=== PATIENT | female | born 1975 | race Hispanic/Latino ===

== ENCOUNTER 2019-01-20 11:27 | Inpatient (IN) | payer MEDICAID ==
[~2019-01-20] VITALS: Ht 152.4 cm; Wt 55.2 kg
[2019-01-20 12:51] LABS: HEMATOCRIT 37.4 % (36.0-47.0); HEMOGLOBIN 12.8 g/dl (12.0-15.5); MEAN CORPUSCULAR HEMOGLOBIN 30.1 pg (27.0-33.0); MEAN CORPUSCULAR HGB CONC 34.2 g/dl (32.0-36.5); PLATELET COUNT, AUTOMATED 336 10^3/uL (150-450); RED BLOOD COUNT 4.25 10^6/uL (4.00-5.40); WHITE BLOOD COUNT 9.1 10^3/uL (4.0-10.0)
[2019-01-20 13:21] LABS: AMPHETAMINES LEVEL URINE NEGATIVE (NEGATIVE); BARBITURATES URINE NEGATIVE (NEGATIVE); BENZODIAZEPINES URINE NEGATIVE (NEGATIVE); CANNABINOIDS URINE NEGATIVE (NEGATIVE); COCAINE METABOLITE URINE NEGATIVE (NEGATIVE); METHADONE URINE NEGATIVE (NEGATIVE); OPIATES URINE NEGATIVE (NEGATIVE); PHENCYCLIDINE URINE NEGATIVE (NEGATIVE)
[2019-01-20 13:23] LABS: HCG, SERUM QUALITATIVE NEGATIVE (NEGATIVE)
[2019-01-20 13:35] LABS: ALBUMIN 4.1 GM/DL (3.2-5.2); ALT/SGPT 13 U/L (12-78); BILIRUBIN,DIRECT 0.1 MG/DL (0.0-0.2); BILIRUBIN,TOTAL 0.5 MG/DL (0.2-1.0); BLOOD UREA NITROGEN 5 MG/DL (7-18); CALCIUM LEVEL 9.1 MG/DL (8.5-10.1); CARBON DIOXIDE LEVEL 27 MEQ/L (21-32); CHLORIDE LEVEL 108 MEQ/L (98-107); CREATININE FOR GFR 0.59 MG/DL (0.55-1.30); ETHYL ALCOHOL (ETHANOL) < 0.003 % (0.000-0.010); GLOMERULAR FILTRATION RATE > 60.0 (>58); GLUCOSE, FASTING 72 MG/DL (70-100); POTASSIUM SERUM 3.9 MEQ/L (3.5-5.1); SALICYLATE LEVEL < 1.7 MG/DL (5.0-30.0); SODIUM LEVEL 141 MEQ/L (136-145); TOTAL PROTEIN 7.3 GM/DL (6.4-8.2)
[2019-01-20 13:36] LABS: ACETAMINOPHEN LEVEL < 2.0 UG/ML (10.0-30.0)
[2019-01-20] MEDS ORDERED: MAALOX 30 ML SUSP *UDC PO PRN (17:00)
[2019-01-20] MEDS ORDERED: MOM 30ML SUSPENSION UDC PO PRN (17:00)
[2019-01-20] MEDS ORDERED: HALOPERIDOL 5 MG TAB PO PRN (17:00)
[2019-01-20] MEDS ORDERED: diphenhydrAMINE 25 MG CAP PO PRN (17:00)
[2019-01-20] MEDS ORDERED: LORazepam 1 MG TAB PO PRN (17:00)
[2019-01-20] MEDS ORDERED: HALOPERIDOL 10 MG TAB PO PRN (17:08)
[2019-01-20] MEDS: LORazepam 2 MG TAB PO PRN ×2 (17:41→21:59)
[2019-01-20 18:17] VITALS: BP 118/66
[2019-01-20] MEDS: diphenhydrAMINE 50 MG CAP PO PRN (21:04)
[2019-01-20] MEDS: traZODone 50 MG TAB PO PRN (21:59)
[2019-01-21 06:43] VITALS: BP 98/50
[2019-01-21] MEDS: LORazepam 2 MG TAB PO PRN ×2 (10:29→21:24)
--- NOTE | 2019-01-21 14:07 | HPEPDOC ---
General Date of Admission Jan 20, 2019 at 16:46 Date of Service: Jan 21, 2019 Chief Complaint The patient is a 43-year-old female Who presented to [facility] ER after having a family dispute. History of Present Illness Patient is a 43-year-old female with no significant past medical history who presented to the emergency room and was admitted to inpatient mental health unit under care of psychiatry. Hospitalist services consultation for medical screening evaluation. Patient has reported that she has a mild headache but denies nausea, vomiting, chest pain, chest breath, change in her baseline cough, abdominal pain, constipation, diarrhea, or urinary discomfort. She reports that she may have been expressing subjective fevers or chills over last several weeks. She denies any change in her appetite and is not aware of any changes in her weight. Home Medications Unable to Obtain Active Prescriptions or Reported Meds Allergies Coded Allergies: No Known Allergies (Unverified , 01/20/19) Past Medical History Medical History Patient reports that she does not have any medical problems Surgical History Patient reports that she has not had any prior surgeries Family History - Mother with history of diabetes type 2 - Father without any reported medical problems Social History - Denies the use of alcohol or illicit drugs; patient does report that she is a smoker for at least 5 years at half pack a day - Denies recent travel or sick contacts - Lives alone - Occupation; on disability Review of Systems Other systems 10 point review of systems complete, all negative otherwise stated in HPI Vital Signs - Vitals: BP 118/66, HR 82, RR 18, Sat 97%RA, Temp 98.9F - General: Lying in bed, No acute distress, Speaking in full sentences, AAOx3 - HEENT: NC, AT, PERRLA - CVS: RRR, +S1S2 - Lungs: Fair air entry bilaterally, No appreciable wheezing / rales / rhonchi - Abdomen: Soft, Non-distended, Non-tender - Extremities: No lower extremity edema, No calf tenderness - Neuro: No focal motor or sensory deficit - Skin: No visible rashes Plan / VTE VTE Prophylaxis Ordered?: Yes Plan Plan Psychosis - Currently being medically inpatient mental health unit, under the care of Psychiatry Headache - Will start ibuprofen PRN Nicotine dependence - Advised smoking cessation - Will start Nicotine replacement No significant medical history DVT prophylaxis - c/w early ambulation Female bead wrapper was present for the duration of his history and physical examination Please re-consult hospitalist service as needed TINA RUSHING MD Jan 21, 2019 14:07
--- NOTE | 2019-01-21 14:24 | MHHPE ---
DATE OF ADMISSION: 01/20/2019 HISTORY OF PRESENT ILLNESS: This is a 43-year-old woman who was admitted after she was brought to the emergency room by the networker from [facility] ([facility]). [facility] and she had been in snf for about 60 days. She was picked up on an old warrant from many years ago. She arrived her on a bus from [place] prior to her arrest for unknown reasons. She is telling me today that it is because she came to see some stepchildren, but she is very vague as to where these children are or who they are. She was picked up by the police and arrested because they found her wandering and talking to herself. They were going to transport her to the emergency room when they found out she had an outstanding arrest warrant. While incarcerated they noticed very manic and grandiose behavior, alternating with agitation and very odd behavior. An example provided was frequently combing her pubic hair with her toothbrush and picking all over her skin. There was also some delusional thoughts expressed including having super gerardo. She was seen by telepsychiatry last Wednesday while she still was in snf. However, her medications were not changed and she was discharged on just Seroquel 100 mg at bedtime. Again, the snf was trying to set up detention for her because she was going to be homeless on discharge from the snf. They had reached out to [facility] as well as [facility] for discharge planning and detention. [facility] was aware of her mental state and would not provide emergency housing because they did not feel she was stable enough. So upon discharge from snf yesterday, she was taken to [facility] where she was very agitated and created a disturbance in the waiting room. Also there was concern about learning that the patient had a violent past with arrests for attempted murder and assault with a deadly weapon, which had resulted in her being in a forensic unit for 10 years in [place]. When she got discharged from there, that is when she took a bus to come up here to [place]. It seems that those charges were eventually dropped due to "insanity." So, in the emergency room the patient was noted to be actively hallucinating including her insistence that the interviewer was speaking to her during periods of silence. That was actually when they were doing the mental health evaluation at [facility]. In our emergency room, she thought that she had been brought to the hospital because she thought that the doctor at the other clinic had been to busy to give her her medications and that she was here only for prescription and referral to [facility] for housing. 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 She insisted that the snf had cleared her of any mental issues and that she has never had any mental problems. She admitted that she was 10 years in a forensic unit, but she said that she was there by choice and because it was "like camp." Today when I saw the patient, basically she insists she has never had any psychiatric problems despite the fact that she was in a forensic unit for 10 years in [place] and the fact that the [facility] snf had just discharged her yesterday on Seroquel 100 mg at bedtime. She then tells me that she had posttraumatic stress disorder (PTSD) and so when I asked her what her PTSD symptoms were she says "oh, depression and not feeling like I have anything to do." Then I asked her what event resulted in her PTSD and she tells me that she had been in the and her PTSD was from being in [facility], and so I asked her how that resulted in PTSD and she says, "well it was because I was not able to do anything that I could enjoy." So basically, her answers do not make much sense and here is some pressured speed and some flight of ideas and very poor insight and judgment. PAST PSYCHIATRIC HISTORY: I do not know how reliable this is, but as I said, she said she was diagnosed with PTSD. She insists that she has never been diagnosed with any psychiatric problems. She says she has never tired to hurt herself before. FAMILY HISTORY: She denies any psychiatric illness or any suicides in the family. MEDICAL HISTORY: She denies any medical problems. SUBSTANCE ABUSE: She denies any problems with alcohol or drugs. Her toxicology screen was negative. REVIEW OF SYSTEMS: VITAL SIGNS: Blood pressure 98/58, pulse 72, respirations 14. APPEARANCE: She did not appear to be in any apparent distress. NEUROMUSCULAR SYSTEM: The patient's gait was normal. There was no involuntary movements. All other systems were reviewed and found to be negative. MENTAL STATUS EXAMINATION: The patient alert and oriented times three. Her eye contact is fairly good. She is noted to be picking on her skin and she does have a lot of spots all over her face and some on her arms. She is overall cooperative. She is verbally spontaneous, actually her speech is somewhat pressured and she does appear to have some flight of ideas. Mood is okay. Affect is flat. She appears to be delusional as noted above. She denied any auditory hallucinations. She denied being suicidal or homicidal. Concentration is fair. Memory appears to be grossly intact. Insight and judgment is poor. DIAGNOSIS: Schizophrenia versus schizoaffective disorder, bipolar type. TREATMENT PLAN: At this point, we will continue to evaluate and monitor this patient for ongoing psychotic symptoms and what appears to be some manic like symptoms with poor insight and judgment and I am concerned about her history of aggression and so we will observe her on one-to-one observation level. We will continue the Seroquel 100 mg at bedtime. She was offered and she did take, Ativan 2 mg and the Benadryl 50 mg last night, but she refused the Haldol as needed that I had written for her. So, I will make sure that I order the Seroquel for her since it sounds like she is willing to take this. We will continue to titrate her medications as indicated and once she is stable she will be discharged with appropriate followup.
[2019-01-21 16:10] VITALS: BP 89/53
[2019-01-21] MEDS: diphenhydrAMINE 50 MG CAP PO PRN (17:49)
[2019-01-21] MEDS: QUEtiapine FUMARATE 100 MG TAB PO SCH (21:24)
[2019-01-21] MEDS: ACETAMINOPHEN TAB 650MG DOSE (2X325MG) PO PRN (21:24)
[2019-01-22 06:25] VITALS: BP 115/55
[2019-01-22] MEDS: diphenhydrAMINE 50 MG CAP PO PRN ×3 (11:15→20:28)
[2019-01-22] MEDS: NICOTINE POLACRILEX 2 MG GUM PO PRN ×2 (11:15→17:10)
[2019-01-22] MEDS: LORazepam 2 MG TAB PO PRN (13:17)
[2019-01-22] MEDS: CLINDAMYCIN TOP 1% SOLN 60 ML BTL TOP SCH ×2 (14:39→20:28)
[2019-01-22 16:22] VITALS: BP 91/55
--- NOTE | 2019-01-22 16:36 | MHIPN ---
DATE: 01/22/2019 The patient today was pretty much talking nonstop. Her speech was very pressured. She kept talking about her stepdaughter that she says is "out of control." She says that she came to see that stepdaughter, the stepdaughter had been taking her money, but she had heard that the stepdaughter was going to work as a stripper and she was trying to set her straight and basically this is all that she was focusing on today. Other than that, she had no complaints. She continues to have no insight as to why she was reportedly in a forensic snf for 10 years in [place] and she kept saying that she was put in detention here in [facility] for crimes that somebody else had committed and not her. MENTAL STATUS EXAMINATION: She is alert and oriented times three. Eye contact is fairly good. Speech is quite pressured and she has flight of ideas. Mood is definitely hypomanic. Affect is labile. I am not sure if she is actually having delusions at this point. She keeps insisting that she has a stepdaughter. There may be some way to try to find out who the stepdaughter might be, but the patient does not even having a phone number and the way she describes it, it was that she had arrived a couple of months ago from [place] with her suitcase and walking around the square trying to figure out where the stepdaughter was living, so I do not know how reliable she is. She says that this is when the police found her and arrested her again. DIAGNOSIS: 1. Schizophrenia versus schizoaffective disorder, bipolar type. TREATMENT PLAN: This as noted above. In the meantime, I have continued the Seroquel 100 mg at night and she has started to take that and it seems that she has accepted as needed medication of Ativan and Benadryl, even this morning, and she has taken the trazodone. At this point, I will continue the one-to-one observation level, as I am concerned about the history that was given that this patient had a history of being aggressive and was 10 years in a forensic hospital.
[2019-01-22] MEDS: ACETAMINOPHEN TAB 650MG DOSE (2X325MG) PO PRN (17:10)
[2019-01-22] MEDS: traZODone 50 MG TAB PO PRN (20:28)
[2019-01-22] MEDS: QUEtiapine FUMARATE 100 MG TAB PO SCH (20:28)
[2019-01-23 06:56] VITALS: BP 116/62
[2019-01-23] MEDS: CLINDAMYCIN TOP 1% SOLN 60 ML BTL TOP SCH ×2 (09:38→20:22)
[2019-01-23] MEDS: NICOTINE POLACRILEX 2 MG GUM PO PRN ×2 (09:39→15:21)
[2019-01-23] MEDS: diphenhydrAMINE 50 MG CAP PO PRN ×2 (09:39→17:57)
[2019-01-23] MEDS: IBUPROFEN 400 MG TAB PO PRN ×2 (09:39→20:20)
--- NOTE | 2019-01-23 11:02 | MHIPNPDOC ---
[facility] Progress Note Progress Note DATE OF SERVICE: 01/23/19 HISTORY: Per Dr. Oneal admit note: "This is a 43-year-old woman who was admitted after she was brought to the emergency room by the hot tamale worker from [facility] ([facility]). [facility] and she had been in nursing home for about 60 days. She was picked up on an old warrant from many years ago. She arrived her on a bus from [place] prior to her arrest for unknown reasons. She is telling me today that it is because she came to see some stepchildren, but she is very vague as to where these children are or who they are. She was picked up by the police and arrested because they found her wandering and talking to herself. They were going to transport her to the emergency room when they found out she had an outstanding arrest warrant. While incarcerated they noticed very manic and grandiose behavior, alternating with agitation and very odd behavior. An example provided was frequently combing her pubic hair with her toothbrush and picking all over her skin. There was also some delusional thoughts expressed including having super gerardo. She was seen by telepsychiatry last Wednesday while she still was in nursing home. However, her medications were not changed and she was discharged on just Seroquel 100 mg at bedtime. Again, the nursing home was trying to set up long-term for her because she was going to be homeless on discharge from the nursing home. They had reached out to [facility] as well as [facility] for discharge planning and long-term. [facility] was aware of her mental state and would not provide emergency housing because they did not feel she was stable enough. So upon discharge from nursing home yesterday, she was taken to [facility] where she was very agitated and created a disturbance in the waiting room. Also there was concern about learning that the patient had a violent past with arrests for attempted murder and assault with a deadly weapon, which had resulted in her being in a forensic unit for 10 years in [place]. When she got discharged from there, that is when she took a bus to come up here to [place]. It seems that those charges were eventually dropped due to "insanity." So, in the emergency room the patient was noted to be actively hallucinating including her insistence that the interviewer was speaking to her during periods of silence. That was actually when they were doing the mental health evaluation at [facility]. In our emergency room, she thought that she had been brought to the hospital because she thought that the doctor at the other clinic had been to busy to give her her medications and that she was here only for prescription and referral to [facility] for housing. 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 She insisted that the nursing home had cleared her of any mental issues and that she has never had any mental problems. She admitted that she was 10 years in a forensic unit, but she said that she was there by choice and because it was "like camp." Today when I saw the patient, basically she insists she has never had any psychiatric problems despite the fact that she was in a forensic unit for 10 years in [place] and the fact that the [facility] nursing home had just discharged her yesterday on Seroquel 100 mg at bedtime. She then tells me that she had posttraumatic stress disorder (PTSD) and so when I asked her what her PTSD symptoms were she says "oh, depression and not feeling like I have anything to do." Then I asked her what event resulted in her PTSD and she tells me that she had been in the and her PTSD was from being in [facility], and so I asked her how that resulted in PTSD and she says, "well it was because I was not able to do anything that I could enjoy." So basically, her answers do not make much sense and here is some pressured speed and some flight of ideas and very poor insight and judgment." VITAL SIGNS: See below. NEW TEST RESULTS: See below. CURRENT MEDICATIONS: See below. MENTAL STATUS EXAMINATION: Pt is pleasant and cooperative. She is alert and oriented times three. Eye contact is fairly good. Pt has normal rate, rhythm, and volume of speech. Speech content is concrete, but linear. Insight is poor and judgement is fair. Pt appears to have below-average knowledge. Mood appears euthymic. Due to mental history, pt does not appear to be reliable. Due to poor insight, this is likely unintentional. Denies SI/HI, AH/VH. DIAGNOSES: 1. Schizophrenia versus schizoaffective disorder, bipolar type. ASSESSMENT: She states that her daughter will pick her up when she is ready to go home. She had no complaints at this time. She states that she does not know why she had a warrant for her arrest because she denies being in the area in 2006. Pt stated that she did not brush her pubic hair at the nursing home, and that she was instead "brushing the crusties off [her] feet" with the toothbrush. She states that she was being bothered by others there and was defending herself. Sh e states that she has had a "steady mental health history," and that she has had bad periods of mental health. She seems to have no insight into her psychosis. Pt states that she has PTSD due to her time in [facility]. She states that she has occasional bad dreams but does not remember the content, but that they are gone now that she has her Seroquel. Pt states that the Seroquel has been effective and does not feel the need to change the dose. She feels it is safe to d/c 1:1 sitter. Denies SI/HI, AH/SH. Pt feels safe here. MANAGEMENT PLAN: d/c 1:1 sitter. seroquel 100mg qhs trazodone 50mg qhs prn insomnia haldol 10mg q6hr prn anxiety/agitation benadryl 50mg q6hr prn anxiety/agitation TIME SPENT: 30 minutes. Vital Signs Vital Signs Date Time Temp Pulse Resp B/P (MAP) Pulse Ox O2 Delivery O2 Flow Rate FiO2 01/23/19 06:56 98.1 84 16 116/62 (80) 01/21/19 07:55 Room Air 01/20/19 18:17 97 Current Medications Current Medications Medications (Trade) Dose Ordered Sig/Jeni Route PRN Reason Start Time Stop Time Status Last Admin Dose Admin Acetaminophen (Tylenol Tab) 650 mg Q6HP PRN PO HEADACHE or DISCOMFORT 01/20/19 17:00 01/22/19 17:10 Al Hydrox/Mg Hydrox/Simethicone (Mylanta) 30 ml Q4HP PRN PO HEARTBURN/INDIGESTION 01/20/19 17:00 Clindamycin Phosphate (Cleocin 1% Top) apply topically to face BID TOP 01/22/19 09:00 01/25/19 08:59 01/23/19 09:38 Diphenhydramine HCl (Benadryl) 50 mg Q4HP PRN PO SEVERE AGITATION 01/21/19 13:00 01/22/19 17:10 Diphenhydramine HCl (Benadryl) 50 mg Q6HP PRN PO ANXIETY/AGITATION 01/20/19 17:00 01/20/19 17:08 DC Diphenhydramine HCl (Benadryl) 50 mg Q6HP PRN PO ANXIETY/AGITATION 01/20/19 17:08 01/23/19 09:39 Haloperidol (Haldol) 10 mg Q4HP PRN PO ANXIETY/AGITATION 01/20/19 17:00 01/20/19 17:08 DC Haloperidol (Haldol) 10 mg Q4HP PRN PO ANXIETY/AGITATION 01/20/19 17:08 Home Med (Med Rec Complete!) ASDIRECTED XX 01/20/19 12:45 01/20/19 12:40 DC Ibuprofen (Advil) 400 mg Q8HP PRN PO PAIN 01/21/19 14:15 01/23/19 09:39 Lorazepam (Ativan) 2 mg Q4HP PRN PO ANXIETY/AGITATION 01/20/19 17:00 01/20/19 17:08 DC Lorazepam (Ativan) 2 mg Q4HP PRN PO ANXIETY/AGITATION 01/20/19 17:08 01/22/19 13:17 Magnesium Hydroxide (Milk Of Magnesia) 30 ml DAILYPRN PRN PO CONSTIPATION 01/20/19 17:00 Nicotine (Nicorette) 2 mg Q4HP PRN PO NICOTINE WITHDRAWAL 01/21/19 14:15 01/23/19 09:39 Quetiapine Fumarate (SEROquel) 100 mg QHS PO 01/21/19 21:00 01/22/19 20:28 Trazodone HCl (Desyrel) 50 mg QHSP PRN PO INSOMNIA 01/20/19 17:00 01/22/19 20:28 Allergies Coded Allergies: No Known Allergies (Unverified , 01/20/19) JONATHON COVINGTON DO Jan 23, 2019 11:02 am
[2019-01-23] MEDS: LORazepam 2 MG TAB PO PRN ×2 (15:19→20:20)
[2019-01-23 16:00] VITALS: BP 100/59
[2019-01-23] MEDS: QUEtiapine FUMARATE 100 MG TAB PO SCH (20:20)
[2019-01-23] MEDS: traZODone 50 MG TAB PO PRN (21:02)
[2019-01-24 06:37] VITALS: BP 107/62
[2019-01-24] MEDS: LORazepam 2 MG TAB PO PRN ×2 (08:22→19:59)
[2019-01-24] MEDS: CLINDAMYCIN TOP 1% SOLN 60 ML BTL TOP SCH ×2 (08:23→20:00)
[2019-01-24] MEDS: IBUPROFEN 400 MG TAB PO PRN (08:23)
[2019-01-24] MEDS: NICOTINE POLACRILEX 2 MG GUM PO PRN ×3 (08:23→20:02)
--- NOTE | 2019-01-24 10:07 | MHIPNPDOC ---
[facility] Progress Note Progress Note DATE OF SERVICE: 01/24/19 HISTORY: Per Dr. Oneal admit note: "This is a 43-year-old woman who was admitted after she was brought to the emergency room by the transportation maintenance worker from [facility]). [facility] and she had been in custodial for about 60 days. She was picked up on an old warrant from many years ago. She arrived her on a bus from [place] prior to her arrest for unknown reasons. She is telling me today that it is because she came to see some stepchildren, but she is very vague as to where these children are or who they are. She was picked up by the police and arrested because they found her wandering and talking to herself. They were going to transport her to the emergency room when they found out she had an outstanding arrest warrant. While incarcerated they noticed very manic and grandiose behavior, alternating with agitation and very odd behavior. An example provided was frequently combing her pubic hair with her toothbrush and picking all over her skin. There was also some delusional thoughts expressed including having super gerardo. She was seen by telepsychiatry last Wednesday while she still was in custodial. However, her medications were not changed and she was discharged on just Seroquel 100 mg at bedtime. Again, the custodial was trying to set up long-term for her because she was going to be homeless on discharge from the custodial. They had reached out to [facility] as well as [facility] for discharge planning and long-term. [facility] was aware of her mental state and would not provide emergency housing because they did not feel she was stable enough. So upon discharge from custodial yesterday, she was taken to [facility] where she was very agitated and created a disturbance in the waiting room. Also there was concern about learning that the patient had a violent past with arrests for attempted murder and assault with a deadly weapon, which had resulted in her being in a forensic unit for 10 years in [place]. When she got discharged from there, that is when she took a bus to come up here to [place]. It seems that those charges were eventually dropped due to "insanity." So, in the emergency room the patient was noted to be actively hallucinating including her insistence that the interviewer was speaking to her during periods of silence. That was actually when they were doing the mental health evaluation at [facility]. In our emergency room, she thought that she had been brought to the hospital because she thought that the doctor at the other clinic had been to busy to give her her medications and that she was here only for prescription and referral to [facility] for housing. 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 She insisted that the custodial had cleared her of any mental issues and that she has never had any mental problems. She admitted that she was 10 years in a forensic unit, but she said that she was there by choice and because it was "like camp." Today when I saw the patient, basically she insists she has never had any psychiatric problems despite the fact that she was in a forensic unit for 10 years in [place] and the fact that the [facility] custodial had just discharged her yesterday on Seroquel 100 mg at bedtime. She then tells me that she had posttraumatic stress disorder (PTSD) and so when I asked her what her PTSD symptoms were she says "oh, depression and not feeling like I have anything to do." Then I asked her what event resulted in her PTSD and she tells me that she had been in the and her PTSD was from being in [facility], and so I asked her how that resulted in PTSD and she says, "well it was because I was not able to do anything that I could enjoy." So basically, her answers do not make much sense and here is some pressured speed and some flight of ideas and very poor insight and judgment." VITAL SIGNS: See below. NEW TEST RESULTS: See below. CURRENT MEDICATIONS: See below. MENTAL STATUS EXAMINATION: Pt is pleasant and cooperative. She is alert and oriented times three. Eye contact is fairly good. Pt has normal rate, rhythm, and volume of speech. Speech content is concrete, but linear. Insight is fair and judgement is fair. Pt appears to have below-average knowledge. Mood appears euthymic. Denies SI/HI, AH/VH, delusions. DIAGNOSES: 1. Schizophrenia versus schizoaffective disorder, bipolar type. ASSESSMENT: She states that her daughter will pick her up when she is ready to go home, possibly tomorrow as states she feels good and denies psychotic symptoms. She has no complaints at this time. States she feels her concentration is good as she's able to read a book, feels calm and content, is pleasant and co operative, feels her meds are beneficial. Overall she states she feels over improved. States she slept well last night and denies nightmares with seroquel. She feels it is safe to d/c home tomorrow. Denies SI/HI, hallucinations, delusions. Pt feels safe here. MANAGEMENT PLAN: d/c planning seroquel 100mg qhs trazodone 50mg qhs prn insomnia haldol 10mg q6hr prn anxiety/agitation benadryl 50mg q6hr prn anxiety/agitation TIME SPENT: 30 minutes. Vital Signs Vital Signs Date Time Temp Pulse Resp B/P (MAP) Pulse Ox O2 Delivery O2 Flow Rate FiO2 01/24/19 09:38 Room Air 01/24/19 06:37 97.8 84 12 107/62 (77) 01/20/19 18:17 97 Current Medications Current Medications Medications (Trade) Dose Ordered Sig/Jeni Route PRN Reason Start Time Stop Time Status Last Admin Dose Admin Acetaminophen (Tylenol Tab) 650 mg Q6HP PRN PO HEADACHE or DISCOMFORT 01/20/19 17:00 01/22/19 17:10 Al Hydrox/Mg Hydrox/Simethicone (Mylanta) 30 ml Q4HP PRN PO HEARTBURN/INDIGESTION 01/20/19 17:00 Clindamycin Phosphate (Cleocin 1% Top) apply topically to face BID TOP 01/22/19 09:00 01/25/19 08:59 01/24/19 08:23 Diphenhydramine HCl (Benadryl) 50 mg Q4HP PRN PO SEVERE AGITATION 01/21/19 13:00 01/23/19 17:57 Diphenhydramine HCl (Benadryl) 50 mg Q6HP PRN PO ANXIETY/AGITATION 01/20/19 17:00 01/20/19 17:08 DC Diphenhydramine HCl (Benadryl) 50 mg Q6HP PRN PO ANXIETY/AGITATION 01/20/19 17:08 01/23/19 11:03 DC 01/23/19 09:39 Haloperidol (Haldol) 10 mg Q4HP PRN PO ANXIETY/AGITATION 01/20/19 17:00 01/20/19 17:08 DC Haloperidol (Haldol) 10 mg Q4HP PRN PO ANXIETY/AGITATION 01/20/19 17:08 Home Med (Med Rec Complete!) ASDIRECTED XX 01/20/19 12:45 01/20/19 12:40 DC Ibuprofen (Advil) 400 mg Q8HP PRN PO PAIN 01/21/19 14:15 01/24/19 08:23 Lorazepam (Ativan) 2 mg Q4HP PRN PO ANXIETY/AGITATION 01/20/19 17:00 01/20/19 17:08 DC Lorazepam (Ativan) 2 mg Q4HP PRN PO ANXIETY/AGITATION 01/20/19 17:08 01/24/19 08:22 Magnesium Hydroxide (Milk Of Magnesia) 30 ml DAILYPRN PRN PO CONSTIPATION 01/20/19 17:00 Nicotine (Nicorette) 2 mg Q4HP PRN PO NICOTINE WITHDRAWAL 01/21/19 14:15 01/24/19 08:23 Quetiapine Fumarate (SEROquel) 100 mg QHS PO 01/21/19 21:00 01/23/19 20:20 Trazodone HCl (Desyrel) 50 mg QHSP PRN PO INSOMNIA 01/20/19 17:00 01/23/19 21:02 Allergies Coded Allergies: No Known Allergies (Unverified , 01/20/19) JONATHON COVINGTON DO Jan 24, 2019 10:07 am
[2019-01-24] MEDS: diphenhydrAMINE 50 MG CAP PO PRN (11:30)
[2019-01-24 16:11] VITALS: BP 106/58
[2019-01-24] MEDS: traZODone 50 MG TAB PO PRN (19:59)
[2019-01-24] MEDS: QUEtiapine FUMARATE 100 MG TAB PO SCH (20:00)
[2019-01-25] MEDS: diphenhydrAMINE 50 MG CAP PO PRN (03:37)
[2019-01-25 06:35] VITALS: BP 92/62
[2019-01-25] MEDS: LORazepam 2 MG TAB PO PRN (08:34)
[2019-01-25] MEDS: IBUPROFEN 400 MG TAB PO PRN (08:35)
[2019-01-25] MEDS: NICOTINE POLACRILEX 2 MG GUM PO PRN (08:36)
[2019-01-25] MEDS ORDERED: TRAZ-252 PO (08:45)
[2019-01-25] MEDS ORDERED: CLIN1SOL TOP (08:45)
[2019-01-25] MEDS ORDERED: QUET1TAB8 PO (08:45)
--- NOTE | 2019-01-25 08:46 | MHDSPDOC ---
[facility] Discharge Summary Discharge Summary DATE OF ADMISSION: Jan 20, 2019 at 4:46 pm DATE OF DISCHARGE: Jan 25, 2019 DISCHARGE DIAGNOSES: Schizophrenia undifferentiated REASON FOR ADMISSION: Per Dr. Oneal admit note: "This is a 43-year-old woman who was admitted after she was brought to the emergency room by the car worker helper from [facility] ([place]). She was released from [facility] yesterday and she had been in half-way for about 60 days. She was picked up on an old warrant from many years ago. She arrived her on a bus from [place] prior to her arrest for unknown reasons. She is telling me today that it is because she came to see some stepchildren, but she is very vague as to where these children are or who they are. She was picked up by the police and arrested because they found her wandering and talking to herself. They were going to transport her to the emergency room when they found out she had an outstanding arrest warrant. While incarcerated they noticed very manic and grandiose behavior, alternating with agitation and very odd behavior. An example provided was frequently combing her pubic hair with her toothbrush and picking all over her skin. There was also some delusional thoughts expressed including having super gerardo. She was seen by telepsychiatry last Wednesday while she still was in half-way. However, her medications were not changed and she was discharged on just Seroquel 100 mg at bedtime. Again, the half-way was trying to set up longterm for her because she was going to be homeless on discharge from the half-way. They had reached out to [facility] as well as [facility] for discharge planning and longterm. [facility] was aware of her mental state and would not provide emergency housing because they did not feel she was stable enough. So upon discharge from half-way yesterday, she was taken to [facility] where she was very agitated and created a disturbance in the waiting room. Also there was concern about learning that the patient had a violent past with arrests for attempted murder and assault with a deadly weapon, which had resulted in her being in a forensic unit for 10 years in [place]. When she got discharged from there, that is when she took a bus to come up here to [place]. It seems that those charges were eventually dropped due to "insanity." So, in the emergency room the patient was noted to be actively hallucinating including her insistence that the interviewer was speaking to her during periods of silence. That was actually when they were doing the mental health evaluation at [facility]. In our emergency room, she thought that she had been brought to the hospital because she thought that the doctor at the other clinic had been to busy to give her her medications and that she was here only for prescription and referral to [facility] for housing. 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 She insisted that the half-way had cleared her of any mental issues and that she has never had any mental problems. She admitted that she was 10 years in a forensic unit, but she said that she was there by choice and because it was "like camp." Today when I saw the patient, basically she insists she has never had any psychiatric problems despite the fact that she was in a forensic unit for 10 years in [place] and the fact that the psychiatric hospital half-way had just discharged her yesterday on Seroquel 100 mg at bedtime. She then tells me that she had posttraumatic stress disorder (PTSD) and so when I asked her what her PTSD symptoms were she says "oh, depression and not feeling like I have anything to do." Then I asked her what event resulted in her PTSD and she tells me that she had been in the and her PTSD was from being in [facility], and so I asked her how that resulted in PTSD and she says, "well it was because I was not able to do anything that I could enjoy." So basically, her answers do not make much sense and here is some pressured speed and some flight of ideas and very poor insight and judgment." CONSULTANTS INVOLVED: none TREATMENT AND PROGRESS ON THE UNIT : Pt was admitted to [facility], seen for psyc hiatric assessment and started on seroquel 100mg qhs for psychosis. She was provided haldol 5mg q6hr prn anxiety/agitation, ativan 2mg q6hr prn anxiety/agitation, and trazodone 50mg qhs prn insomnia. Pt found her medications beneficial and tolerated them well. She attended groups daily during her stay. Her symptoms improved greatly with treatment. She was pleasant and cooperative during her stay. On day of discharge she denied depression, anxiety, insomnia, SI/HI, hallucinations, delusions. She was d ischarged home with daughter with follow-up at [facility].. She felt safe for discharge. DISCHARGE ASSESSMENT: She states she feels "good" today and is looking forward to going home with her daughter. She denies psychotic symptoms. She has no complaints at this time. States she feels her concentration is good as she's able to read a book, feels calm and content, is pleasant and cooperative, feels her meds are beneficial and she's tolerating them well. Overall she states she feels greatly improved. States she slept well last night and denies nightmares with seroquel. She feels it is safe to d/c home today. Denies depression, anxiety, insomnia, SI/HI, hallucinations, delusions here. MENTAL STATUS EXAMINATION ON DISCHARGE: Pt is pleasant and cooperative. She is alert and oriented times three. Eye contact is fairly good. Pt has normal rate, rhythm, and volume of speech. Speech content is concrete, but linear. Insight is fair-good and judgement is good. Pt appears to have below-average knowledge. Mood appears euthymic. Denies SI/HI, AH/VH, delusions. MEDICATIONS ON DISCHARGE: seroquel 100mg qhs trazodone 50mg qhs prn insomnia PLAN/FOLLOWUP ARRANGEMENTS: D/c home with daughter with follow-up at [facility]. The amount of time spent in the coordination of care for this patient was approximately 30 minutes. Vital Signs/I&Os Vital Signs Date Time Temp Pulse Resp B/P (MAP) Pulse Ox O2 Delivery O2 Flow Rate FiO2 01/25/19 06:35 98.6 68 18 92/62 (72) 01/24/19 09:38 Room Air 01/20/19 18:17 97 Medications Unable to Obtain Active Prescriptions or Reported Meds Allergies Coded Allergies: No Known Allergies (Unverified , 01/20/19) JONATHON COVINGTON DO Jan 25, 2019 8:46 am
== END 2019-01-25 13:10 | disposition home or self-care (01) | DRG 750 ==
LOC: M ED 11:27 → M ED INP 16:46 → M PSY 17:15
PROVIDERS: ADMIT Psychiatry & Neurology Psychiatry; ATTEND Psychiatry & Neurology Psychiatry
DX: F20.3 Undifferentiated schizophrenia (principal); F25.0 Schizoaffective disorder, bipolar type; Z59.0 Homelessness; F43.10 Post-traumatic stress disorder, unspecified; Z79.899 Other long term (current) drug therapy; F17.210 Nicotine dependence, cigarettes, uncomplicated